=== PATIENT | male | born 1970 | race Caucasian/White ===

== ENCOUNTER 2021-10-12 10:15 | Emergency (ER) | payer BC ==
[~2021-10-12] VITALS: Ht 182.9 cm; Wt 93.0 kg
[2021-10-12 10:25] VITALS: BP_SYST 148
[2021-10-12] MEDS ORDERED: BACITRACIN 1 GM OINT TP ONE (10:30)
[2021-10-12] MEDS ORDERED: LIDOCAINE 1% 10 MG/ML, 20 ML MDV INJ ONE (10:30)
[2021-10-12] MEDS ORDERED: DIPH-TET-PERTUS Vaccine 0.5 ML VIAL (ADACEL) I.M. ONE (10:30)
[2021-10-12] MEDS ORDERED: IBUP-1971 PO (10:54)
[2021-10-12] MEDS ORDERED: CLIN-142 PO (10:54)
[2021-10-12 11:09] VITALS: BP_SYST 148
== END 2021-10-12 11:10 | disposition home or self-care (01) ==
LOC: SED 10:15
DX: L02.212 Cutaneous abscess of back [any part, except buttock and flank] (principal); R22.2 Localized swelling, mass and lump, trunk; Z88.1 Allergy status to other antibiotic agents; Z79.899 Other long term (current) drug therapy
CPT/HCPCS: 90715; 99283

== ENCOUNTER 2021-10-14 08:13 | Emergency (ER) | payer BC ==
[~2021-10-14] VITALS: Ht 182.9 cm; Wt 93.0 kg
[~2021-10-14 08:13] MED LIST: CLIN-142 PO; IBUP-1971 PO
[2021-10-14 08:25] VITALS: BP_SYST 135
--- NOTE | 2021-10-14 08:39 | NUR ---
ASSESSED PT/PT PRESENTED TO ER FOR FOLLOW UP ON ABSCESS ESPRESION WOUND/VS ARE WITHIN NORMAL LIMITS/WOUND DRESSING HAS SOME SEROSANGUANUS DISCHARGE ON DRESSING. PT IS IN BED WAITING FOR
--- NOTE | 2021-10-14 08:46 | NUR ---
Patient to ER bed 8 to gown for evaluation. Side rails up. Report given to AMANDA MCELROY.
--- NOTE | 2021-10-14 08:57 | NUR ---
Pt in ER for a follow up on I&D of abscess on the back. Pt states day 3/10 of ABX. Denies Fever, chills and any pain R/t wound. Serosanguineous fluids noted on dressing. Pt VSS, NAD. AAOx4. Pt sitting bedside with bed in lowest position.
--- NOTE | 2021-10-14 10:02 | NUR ---
ALVAREZ Mascorro at bedside examining patient.
--- NOTE | 2021-10-14 10:15 | NUR ---
Pt in prone position with gown on. MD supplies prepared bedside. Pt VSS.
--- NOTE | 2021-10-14 11:30 | NUR ---
Pt informed awaiting MD Zaragoza due to MD with rapid response.
[2021-10-14] MEDS ORDERED: SULF1TAB48 PO (11:36)
[2021-10-14] MEDS ORDERED: IBUP-1969 PO (11:37)
--- NOTE | 2021-10-14 12:46 | NUR ---
ER at bedside providing wound care for patient. Pt tolerating well. MD Zaragoza noted left upper posterior shoulder wound from 10 years ago has remnants of packing. requested alligator forceps and removing bits of packing from secondary wound on upper left posterior shoulder.
[2021-10-14] MEDS ORDERED: SULFAMETHOXAZOLE/TRIMETHOPR DS 1 TABLET PO ONE (13:45)
[2021-10-14] MEDS ORDERED: BACITRACIN 1 GM OINT TP ONE (13:59)
--- NOTE | 2021-10-14 14:11 | NUR ---
Pt wound covered with sterile dressing gauze and bandaged with silk tape. Pt given wound care instructions of care.
[2021-10-14 14:13] VITALS: BP_SYST 135
--- NOTE | 2021-10-14 14:14 | NUR ---
Patient given written and verbal discharge instructions and verbalizes understanding. ER MD discussed with patient the results and treatment provided. Patient in stable condition. ID arm band removed. Rx of Bactrim given. Patient educated on pain management and to follow up with PMD. Opportunity for questions provided and answered. Medication side effect fact sheet provided.
== END 2021-10-14 14:14 | disposition home or self-care (01) ==
LOC: SED 08:13
DX: L03.312 Cellulitis of back [any part except buttock and flank] (principal); R22.2 Localized swelling, mass and lump, trunk; Z88.1 Allergy status to other antibiotic agents; Z79.899 Other long term (current) drug therapy
CPT/HCPCS: 87070-TC; 87075-TC; 99283; 99285

== ENCOUNTER 2021-10-16 06:21 | Emergency (ER) | payer BC ==
[~2021-10-16] VITALS: Ht 182.9 cm; Wt 93.0 kg
[~2021-10-16 06:21] MED LIST changes: +IBUP-1969 PO; +SULF1TAB48 PO
[2021-10-16 06:30] VITALS: BP_SYST 121
--- NOTE | 2021-10-16 06:32 | NUR ---
Patient to ER bed 7 to gown for evaluation. Side rails up. Report given to LIOR CASSIDY(REG).
--- NOTE | 2021-10-16 06:35 | NUR ---
AT BEDSIDE. PT HERE FOR WOUND CHECK UP. WOUND IN MID UPPER BACK. PACKING PRESENT. NO REDNESS OR SWELLING PRESENT. NO SIGNS OF INFECTION PT OLD DRESSING REMOVED
--- NOTE | 2021-10-16 06:36 | NUR ---
ER at bedside examining patient.
--- NOTE | 2021-10-16 06:51 | NUR ---
PT STABLE AT TIME OF DC PT ADVISED TO FOLLOW UP WITH PCP PT ADVISED TO RETURN TO THE ED IF S/S WORSEN PT VERBALIZED UNDERSTANDING OF DC TEACHINGS PT AMBULATORY WITH STEADY GAIT NAD VSS
== END 2021-10-16 06:51 | disposition home or self-care (01) ==
LOC: SED 06:21
DX: L02.212 Cutaneous abscess of back [any part, except buttock and flank] (principal); Z48.00 Encounter for change or removal of nonsurgical wound dressing; Z79.899 Other long term (current) drug therapy
CPT/HCPCS: 99281

== ENCOUNTER 2023-09-30 19:17 | Emergency (ER) | payer BC ==
[~2023-09-30] VITALS: Ht 182.9 cm; Wt 99.8 kg
[2023-09-30 19:27] VITALS: BP_SYST 127; PULSE 104; RESP 20; TEMP 98.4; O2SAT 94
[2023-09-30 20:10] LABS: BASOPHILS % (AUTO) 0.6 % (0.0-2.0); EOSINOPHILS # (AUTO) 0.2 K/uL (0.0-0.4); EOSINOPHILS % (AUTO) 3.6 % (0.0-4.0); HEMATOCRIT 43.5 % (36-54); HEMOGLOBIN 15.2 g/dL (14.0-18.0); LYMPHOCYTES # (AUTO) 2.2 K/uL (1.0-5.5); LYMPHOCYTES % (AUTO) 32.8 % (20.5-51.5); MEAN CORPUSCULAR HEMOGLOBIN 33 pg (27-31); MEAN CORPUSCULAR HGB CONC 35 % (32-36); MEAN CORPUSCULAR VOLUME 95 fL (79.0-98.0); MONOCYTES # (AUTO) 0.7 K/uL (0.0-1.0); MONOCYTES % (AUTO) 10.5 % (1.7-9.3); NEUTROPHILS # (AUTO) 3.6 K/uL (1.8-7.7); NEUTROPHILS % (AUTO) 52.5 % (40.0-70.0); PLATELET COUNT (AUTO) 244 K/uL (130-430); RED BLOOD CELL COUNT(AUTO) 4.58 MIL/uL (4.2-6.2); RED CELL DISTRIBUTION WIDTH 12.9 % (9.0-15.0); WHITE BLOOD COUNT (AUTO) 6.8 K/uL (4.8-10.8)
[2023-09-30 20:31] LABS: CALCIUM 9.2 mg/dL (8.4-11.0); CREATININE 1.02 mg/dL (0.55-1.30); POTASSIUM 3.7 mmol/L (3.5-5.1)
[2023-09-30] MEDS: predniSONE 20 MG TABLET PO ONE (20:39)
[2023-09-30] MEDS: IPRATROPIUM/ALBUTEROL SULFATE 3 ML AMPUL.NEB (DUONEB) INH ONE (20:42)
[2023-09-30] MEDS ORDERED: ALBMDI INH (21:26)
[2023-09-30] MEDS ORDERED: METH-776 PO (21:26)
[2023-09-30] MEDS ORDERED: AZIT500T PO (21:26)
[2023-09-30 21:35] VITALS: BP_SYST 127; PULSE 103; RESP 20; TEMP 98.4; O2SAT 92
== END 2023-09-30 21:35 | disposition home or self-care (01) ==
LOC: SED 19:17
DX: J20.9 Acute bronchitis, unspecified (principal); R06.02 Shortness of breath; R42 Dizziness and giddiness; Z88.1 Allergy status to other antibiotic agents; Z79.899 Other long term (current) drug therapy; Z79.2 Long term (current) use of antibiotics
CPT/HCPCS: 99285; 71045; 80048; 83880; 85025; 84484; 36415; 93005; 94640; J7512